=== PATIENT | female | born 1980 | race African-American/Black ===

== ENCOUNTER 2023-05-19 09:22 | Emergency (ER) | payer BC, SELFPAY ==
--- NOTE | ~2023-05-19 | CT_ITS ---
EXAMINATION: CT HEAD WITHOUT CONTRAST CLINICAL INFORMATION: Right facial droop for months COMPARISON: None available. TECHNIQUE: Contiguous axial imaging was performed from the skull base to vertex without intravenous administration of contrast. This CT examination was performed using dose optimization techniques as appropriate, variously including the following: *Automated exposure control *Adjustment of mA and/or kV according to patient size (this includes techniques or standardized protocols for targeted exams where dose is matched to indication/reason for exam; i.e. extremities or head) *Use of iterative reconstruction technique DLP: 601 mGy-cm FINDINGS: There is no evidence of acute intracranial hemorrhage or territorial infarction. No abnormal mass effect or midline shift is appreciated. Franco-white differentiation is well preserved. No extra-axial fluid collections. The ventricular system and cortical sulci are normal in size. The osseous structures and soft tissues are normal. The visualized paranasal sinuses and mastoid air cells are well aerated. CT/CT head/brain wo IV con IMPRESSION: No CT evidence of acute intracranial abnormality. IMPRESSION: No acute intracranial pathology.
[2023-05-19 09:32] VITALS: BP 106/62; PULSE 67; PULSE 71; RESP 18; TEMP 36.8; O2SAT 97; O2SAT 99; BMI 27.6
--- NOTE | 2023-05-19 09:37 | PC.NURSE ---
Per ems/ daughter patient had focal seizures this morning. Per daughter seizure went on her a few hours'. States has not taken dilantin in a long time. Here visiting family but normally lives in [place]. had a seizure about two weeks, with headstrike, per daughter with LOC, reports since falling down the stairs her vision has declined. Bruise noted to left side of face near eye. NSR on monitor
--- NOTE | 2023-05-19 09:41 | PC.NURSE ---
Patient reports 30lb weight loss in last month-when asked why patient states not eating well. Endorses feeling depressed
--- NOTE | 2023-05-19 09:42 | PC.NURSE ---
denies si/hi
[2023-05-19 09:43] VITALS: BP 136/76; PULSE 62; RESP 18; TEMP 36.8; O2SAT 98
--- NOTE | 2023-05-19 09:43 | ECG_ITS ---
Test Reason : SEIZURE Blood Pressure : / mmHG Vent. Rate : 064 BPM Atrial Rate : 064 BPM P-R Int : 136 ms QRS Dur : 080 ms QT Int : 442 ms P-R-T Axes : 041 073 038 degrees QTc Int : 455 ms Normal sinus rhythm Normal ECG No previous ECGs available Referred By: Kelin Lieberman Electronically Signed By:PATTY DUPONT
--- NOTE | 2023-05-19 09:43 | ED.SEIZURE ---
HPI - Seizure General Chief Complaint: Seizure Stated Complaint: SZ,NO MED TODAY PER EMS Time Seen by Provider: 05/19/23 09:31 Source: patient, family (Daughter), EMS and RN notes reviewed Mode of arrival: EMS Limitations: no limitations History of Present Illness HPI Narrative: Patient is a 42-year-old female with history of seizures presenting to the emergency department today after witnessed seizures by daughter. Patient states that she is currently living in [place] and does not have a neurologist at this time, has not taken her Dilantin for several months. Patient reports prior to that she was on 400 mg of Dilantin daily for 20 years. Daughter also reports that patient has had a new right facial droop for the past several months noted on FaceTime calls. Patient states she was never evaluated for the facial droop. Patient also reporting a fall approximately 2 weeks ago with a head strike. Patient states she is not currently on blood thinners. Patient reports increased anxiety and stress recently. Patient also complains of chest tightness. Denies shortness of breath. Denies abdominal pain, nausea, vomiting, diarrhea, or constipation. Patient denies any drug or alcohol use. Patient states that she is currently here visiting her daughter and lives in [place] [employer]. MD complaint: seizure Onset (ago): hour(s) Description of Episode: tonic-clonic movement Witnessed: Yes - by Bystander (Witnessed by daughter) Trauma: No Seizure History: Yes Place: Home Possible Precipitating Event: medication (Has not taken Dilantin in several months) Associated symptoms: chest pain (Tightness) Treatments prior to arrival: none Related Data Previous Rx's Medication Instructions Recorded nitrofurantoin 100 mg PO Q12H 5 days #10 caps 05/19/23 monohydrate/macrocrystals 100 mg capsule (Macrobid) phenytoin sodium extended 200 mg 400 mg (2 x 200 mg) PO DAILY 7 05/19/23 capsule days #14 caps Allergies Allergy/AdvReac Type Severity Reaction Status Date / Time codeine [CODEINE] Allergy Unknown HIVES Unverified 05/12/20 16:51 Review of Systems Review of Systems: As per HPI. Yes all other systems are reviewed and are negative Constitutional: Constitutional: Reports as per HPI PMFSH Social History Social History Smoked in Last 30 Days: Yes Substance Use Type: Marijuana Advance Directives: No Physical Exam Vital Signs: Vital Signs: Last Vital Signs Temp 98.2 F 05/19/23 09:43 Pulse 67 05/19/23 11:55 Resp 18 05/19/23 11:55 BP 102/36 L 05/19/23 11:55 Pulse Ox 97 05/19/23 11:55 O2 Del Method Room Air 05/19/23 11:55 BMI result Body Mass Index 27.6 Vital signs have been reviewed and appear to be correct. Blood pressure normal. Heart rate normal. Respiratory rate normal. Temperature normal. Oxygen saturation normal. Const: General: cooperative, healthy appearing and no acute distress Orientation/consciousness: oriented to person, oriented to place, oriented to time and patient oriented x3 Limitations: no limitations HEENT: Head: Yes normocephalic and Yes atraumatic Ears: external ears normal General nose exam: Normal external nose present Face and sinus: No face symmetric Mouth: oropharynx normal and moist mucous membranes Throat: Yes uvula midline Eyes: Pupils: Equal, round and reactive pupils present EOM: EOMs intact bilaterally Neck: Neck: Yes normal visual inspection and Yes supple Resp: Effort & Inspection: normal respiratory effort and able to speak in complete sentences Auscultation: clear to auscultation bilaterally Cardio: Rate: regular rate Rhythm: regular rhythm Heart sounds: S1 normal heart sound present and S2 normal heart sound present GI: Palpation (GI): Soft to palpation and nontender Auscultation: normoactive bowel sounds : General: Yes no CVA tenderness Back/Spine/Pelvis: Back: no CVA tenderness Skin: General skin exam: elasticity normal and turgor normal Neuro: Other: Right facial droop noted not involving forehead General: oriented to person, oriented to place, oriented to time, patient oriented x3, tone normal, moves all extremities, Normal light touch and pain sensation, no focal motor deficits and CN's II-XI intact bilaterally Cranial nerves: Yes Equal, round and reactive pupils present Cognition (Neuro): normal cognition Motor exam (neuro): Pronator motor function not present, no tremor noted, Motor fasciculations not present and Abnormal motor strength present right lower extremity flexion 4 / 5, extension 4 / 5, ABduction 4 / 5 and ADduction 4 / 5 Sensory Exam: Normal double simultaneous stimulation for sensation Extrem: General: Yes full ROM, Yes no pedal edema and Yes no calf tenderness Psych: Mental Status: mental status grossly normal Affect: normal affect Thought process: Normal thought process present NIH Stroke Scale Internal: Initial- Upon Arrival Time: 09:58 Level of Consciousness: Alert Level of Consciousness Questions: Answers both questions correctly Level of Consciousness Commands: Performs both tasks correctly Best Gaze: Normal Visual: No visual loss Facial Palsy: Partial paralysis (right facial droop) Motor Arm (Right): No drift Motor Arm (Left): No drift Motor Leg (Right): Some effort against gravity Motor Leg (Left): No drift Limb Ataxia: Absent Sensory: Normal Best Language: No aphasia Dysarthia: Normal Extinction and Inattention: No abnormality Score: 4 Medications Administered Discontinued Medications Generic Name Dose Route Start Last Admin Trade Name Freq PRN Reason Stop Dose Admin Phenytoin Sodium 1,000 mg/ 120 mls @ 100 mls/hr 05/19/23 10:03 05/19/23 11:05 Sodium Chloride IV 05/19/23 11:14 Not Given ONCE ONE Phenytoin Sodium 1,000 mg/ 120 mls @ 100 mls/hr 05/19/23 10:30 05/19/23 11:54 Sodium Chloride IV 05/19/23 11:41 Infused ONCE ONE Infusion Medical Decision Making Medical Decision Making [facility] Narrative: Patient is a 42-year-old female with history of seizures presenting to the emergency department today after witnessed seizures by daughter. On exam patient is awake, A+Ox3, VS WNL, afebrile, physical exam findings as above. Given reported symptoms and physical exam findings, initial differential includes subtherapeutic antiepileptic drug levels, CVA/ICH, malignancy mass, electrolyte abnormality, toxic ingestion, infection such as UTI. Do not suspect sepsis at this time. Labs notable for mild leukocytosis, no anemia, no ALMA, normal lactic acid level, negative troponin, negative HCG, negative salicylates and acetaminophen levels. Urine drug screen positive for THC. Phenytoin level slightly above normal but drawn after loading dose administered in the ED. UA notable for 1+ leukocytes, negative nitrates, 11-20 wbc's with trace bacteria, 3-[address] head notable for no acute intracranial pathology. My interpretation is in agreement with the radiologist's interpretation. Case discussed with Dr. Buckley who agrees patient is stable for discharge home. Will provide patient with prescription for one week of phenytoin at 400mg daily dose patient reports. Will also treat empirically for UTI. Patient given strict instructions to follow up with PCP this week to establish care with a neurologist in [place] for both her seizures as well as her facial droop. Advised patient that if she is unable to have phenytoin prescription filled by PCP within one week to seek care at an emergency department in her home state. All results discussed with patient and all questions answered. Return precautions discussed at bedside. Patient and daughter verbalized understanding of and agreement with plan. Differential Diagnosis Differential Diagnoses: The differential diagnosis associated with the presentation includes As per [facility]. Admission/Observation Consideration of admission/observation: Escalation of care including admission/observation considered Lab Data [facility] Lab Attestation statement: I reviewed the patient's lab results. As per MDM. 05/19/23 10:02 05/19/23 10:02 Labs: Lab Results 05/19/23 05/19/23 05/19/23 Range/Units 09:52 10:02 10:03 WBC 12.7 H (4.8-10.8) X10*3/uL RBC 4.19 L (4.20-5.50) X10*6/uL Hgb 12.2 (12.0-16.0) g/dl Hct 35.6 L (37.0-47.0) % MCV 85.0 (80.0-98.0) fL MCH 29.1 (27.0-33.0) pg MCHC 34.3 (31.0-35.0) g/dl RDW 14.2 (11.0-16.0) % Plt Count 427 H (160-400) X10*3/uL MPV 9.7 (9.4-12.3) fL Immature Gran % (Auto) 0.3 (0.0-0.4) % Neut % (Auto) 63.5 (45-73) % Lymph % (Auto) 30.5 (20-40) % [place] % (Auto) 3.9 (2-11) % Eos % (Auto) 1.5 (0-4) % Baso % (Auto) 0.3 (0-2) % Lymph # (Auto) 3.9 (1.2-4.9) X10*3/uL [place] # (Auto) 0.5 (0.1-1.2) X10*3/uL Eos # (Auto) 0.2 (0.0-0.4) X10*3/uL Baso # (Auto) 0.0 (0.0-0.2) X10*3/uL Abs Immat Gran (auto) 0.04 H (0.00-0.03) X10*3/uL Absolute Neuts (auto) 8.1 (2.0-8.3) x10*3/uL Absolute Nucleated RBC 0.000 (0.0-0.012) X10*3/uL Nucleated RBC % (auto) 0.0 (0.0-0.2) /100WBC PT 12.0 (11.1-13.3) SEC INR 1.0 (0.9-1.1) Sodium 140 (135-145) mmol/L Potassium 3.5 (3.3-5.1) mmol/L Chloride 111 H (96-108) mmol/L Carbon Dioxide 18 L (22-29) mmol/L Anion Gap 15 (12-20) BUN 7 L (9-16) mg/dL Creatinine 0.71 (0.5-1.4) mg/dL Estim Creat Clear Calc 114.6 Estimated GFR > 60 Random Glucose 97 (60-115) mg/dL Lactic Acid 1.5 (0.5-2.0) mmol/L Calcium 9.5 (8.4-10.2) mg/dL Total Bilirubin 0.6 (0.0-1.0) mg/dL AST 12 (5-31) U/L ALT 7 (0-31) U/L Alkaline Phosphatase 69 (39-117) U/L Troponin I High Sens < 2.7 (<3.5-17.0) ng/L Total Protein 6.9 (6.5-8.0) g/dL Albumin 4.3 (3.5-5.0) g/dL Beta HCG, Quant < 2 mIU/mL Urine Color Urine Appearance Urine pH (5.0-9.0) Ur Specific [place] (1.005-1.025) Urine Protein (Neg-Trace) mg/dL Urine Glucose (UA) (Negative) mg/dL Urine Ketones (Negative) mg/dL Urine Blood (Negative) Urine Nitrite (Negative) Ur Leukocyte Esterase (Negative) Urine RBC (0-2) /HPF Urine WBC (0-5) /HPF Ur Squamous Epith Cells (0-2) /HPF Urine Bacteria (None Seen) Hyaline Casts (0-2) /LPF Salicylates < 5.0 L (15-30) mg/dL Urine Opiates Screen (Not Detect) Urine Fentanyl Screen (Not Detect) Acetaminophen < 17 (<30) mcg/mL Ur Barbiturates Screen (Not Detect) Phenytoin (10.0-20.0) ug/mL Ur Phencyclidine Scrn (Not Detect) Ur Amphetamines Screen (Not Detect) U Benzodiazepines Scrn (Not Detect) Urine Cocaine Screen (Not Detect) U Marijuana (THC) Screen (Not Detect) Ethyl Alcohol < 10 mg/dL COVID-19 ([facility]) Cancelled COVID-19 Clin Com Cancelled Influenza Type A (RAIZA) Cancelled Influenza Type A (PCR) (Negative) Influenza Type B (RAIZA) Cancelled Influenza Type B (PCR) (Negative) Influenza A & B Note Cancelled RSV RNA Qual (PCR) (Negative) SARS-CoV-2 RNA (RT-PCR) (Negative) 05/19/23 05/19/23 05/19/23 Range/Units 10:12 12:00 Unknown WBC (4.8-10.8) X10*3/uL RBC (4.20-5.50) X10*6/uL Hgb (12.0-16.0) g/dl Hct (37.0-47.0) % MCV (80.0-98.0) fL MCH (27.0-33.0) pg MCHC (31.0-35.0) g/dl RDW (11.0-16.0) % Plt Count (160-400) X10*3/uL MPV (9.4-12.3) fL Immature Gran % (Auto) (0.0-0.4) % Neut % (Auto) (45-73) % Lymph % (Auto) (20-40) % [place] % (Auto) (2-11) % Eos % (Auto) (0-4) % Baso % (Auto) (0-2) % Lymph # (Auto) (1.2-4.9) X10*3/uL [place] # (Auto) (0.1-1.2) X10*3/uL Eos # (Auto) (0.0-0.4) X10*3/uL Baso # (Auto) (0.0-0.2) X10*3/uL Abs Immat Gran (auto) (0.00-0.03) X10*3/uL Absolute Neuts (auto) (2.0-8.3) x10*3/uL Absolute Nucleated RBC (0.0-0.012) X10*3/uL Nucleated RBC % (auto) (0.0-0.2) /100WBC PT (11.1-13.3) SEC INR (0.9-1.1) Sodium (135-145) mmol/L Potassium (3.3-5.1) mmol/L Chloride (96-108) mmol/L Carbon Dioxide (22-29) mmol/L Anion Gap (12-20) BUN (9-16) mg/dL Creatinine (0.5-1.4) mg/dL Estim Creat Clear Calc Estimated GFR Random Glucose (60-115) mg/dL Lactic Acid (0.5-2.0) mmol/L Calcium (8.4-10.2) mg/dL Total Bilirubin (0.0-1.0) mg/dL AST (5-31) U/L ALT (0-31) U/L Alkaline Phosphatase (39-117) U/L Troponin I High Sens (<3.5-17.0) ng/L Total Protein (6.5-8.0) g/dL Albumin (3.5-5.0) g/dL Beta HCG, Quant mIU/mL Urine Color Yellow Urine Appearance Clear Urine pH 8.0 (5.0-9.0) Ur Specific [place] 1.015 (1.005-1.025) Urine Protein Negative (Neg-Trace) mg/dL Urine Glucose (UA) Negative (Negative) mg/dL Urine Ketones 15 (Negative) mg/dL Urine Blood Negative (Negative) Urine Nitrite Negative (Negative) Ur Leukocyte Esterase Small (1+) H (Negative) Urine RBC 0-2 (0-2) /HPF Urine WBC 11-20 H (0-5) /HPF Ur Squamous Epith Cells 3-5 (0-2) /HPF Urine Bacteria Trace (None Seen) Hyaline Casts 0-2 (0-2) /LPF Salicylates (15-30) mg/dL Urine Opiates Screen Not Detected (Not Detect) Urine Fentanyl Screen Not Detected (Not Detect) Acetaminophen (<30) mcg/mL Ur Barbiturates Screen Not Detected (Not Detect) Phenytoin 22.2 H (10.0-20.0) ug/mL Ur Phencyclidine Scrn Not Detected (Not Detect) Ur Amphetamines Screen Not Detected (Not Detect) U Benzodiazepines Scrn Not Detected (Not Detect) Urine Cocaine Screen Not Detected (Not Detect) U Marijuana (THC) Screen POSITIVE H (Not Detect) Ethyl Alcohol mg/dL COVID-19 ([facility]) COVID-19 Clin Com Influenza Type A ([facility]IZA) Influenza Type A (PCR) NEGATIVE (Negative) Influenza Type B (RAIZA) Influenza Type B (PCR) NEGATIVE (Negative) Influenza A & B Note RSV RNA Qual (PCR) NEGATIVE (Negative) SARS-CoV-2 RNA (RT-PCR) NEGATIVE (Negative) Independent Interpretation I performed an independent interpretation of an: CT Scan Interpretation: No acute abnormality on CT head EKG shows normal sinus rhythm, rate of 64 beats per minute, normal MA interval, no evidence of STEMI Radiology Impression Discussion of test interpretation with radiology: I have reviewed the radiologist's reading. Radiologist Impression: IMPRESSION: No acute intracranial pathology. Independent Historian Clinical information obtained from an independent historian. History obtained from or confirmed by: Other (daughter) External Record Review External record reviewed: Inpatient record, Office record and Outpatient record Prescription Management I considered prescription management with: Antibiotic and Other Chronic Conditions Patient?s care impacted by: Other (seizures) Discharge Plan Discharge Clinical Impression: Generalized seizure Patient Disposition: Home, Self-Care Instructions: Recurrent Seizures in Adults (ED) Additional Instructions: You were evaluated in the emergency department today after a seizure. You are being treated with antibiotics for UTI, please complete the full course as prescribed. You were given a loading dose of phenytoin in the emergency department today. You are being prescribed a 7 day supply of your phenytoin for your seizures. Please follow-up with your primary care provider in [place] to continue this prescription in to help you establish care with a new neurologist. Return to the emergency department for additional features, severe headache, high fever, persistent vomiting, changes in vision, severe muscle pain, dark urine, or any other new or concerning symptoms. Prescriptions: New phenytoin sodium extended 200 mg capsule 400 mg PO DAILY 7 Days Qty: 14 0RF nitrofurantoin monohyd/m-cryst [Macrobid] 100 mg capsule 100 mg PO Q12H 5 Days Qty: 10 0RF Rx Instructions: must administer with a meal/food
[2023-05-19 10:08] LABS: MANUAL DIFF FLAG NO
[2023-05-19 10:10] LABS: Basophils Percent Auto 0.3 % (0-2); Eosinophils Absolute Auto 0.2 X10*3/uL (0.0-0.4); Eosinophils Percent Auto 1.5 % (0-4); Hematocrit 35.6 % (37.0-47.0); Hemoglobin 12.2 g/dl (12.0-16.0); Imm Gran Abs Auto 0.04 X10*3/uL (0.00-0.03); Imm Gran Pct Auto 0.3 % (0.0-0.4); Lymphocytes Absolute Auto 3.9 X10*3/uL (1.2-4.9); Lymphocytes Percent Auto 30.5 % (20-40); Mean Corpuscular HGB Conc 34.3 g/dl (31.0-35.0); Mean Corpuscular Hemoglobin 29.1 pg (27.0-33.0); Mean Platelet Volume 9.7 fL (9.4-12.3); Monocytes Absolute Auto 0.5 X10*3/uL (0.1-1.2); Monocytes Percent Auto 3.9 % (2-11); Neutrophils Absolute Auto 8.1 x10*3/uL (2.0-8.3); Neutrophils Percent Auto 63.5 % (45-73); Platelet Count 427 X10*3/uL (160-400); Red Blood Count 4.19 X10*6/uL (4.20-5.50); Red Cell Distribution Width 14.2 % (11.0-16.0); White Blood Count 12.7 X10*3/uL (4.8-10.8)
[2023-05-19 10:19] LABS: Appearance Urine Clear; Color Urine Yellow; Glucose Urine UA Negative (Negative); Leukocyte Esterase Urine Small (1+) (Negative); Nitrite Urine Negative (Negative); Specific Gravity - Urine 1.015 (1.005-1.025); UMIC TRIGGER UACC YES; Urine Blood Negative (Negative); Urine Ketones 15 mg/dL (Negative); Urine Protein Negative (Neg-Trace)
[2023-05-19 10:24] LABS: Bacteria Urine Trace (None Seen); Hyaline Casts Urine 0-2 /LPF (0-2); RBC Urine 0-2 /HPF (0-2); UACC Culture Trigger YES
[2023-05-19 10:25] LABS: Lactic Acid 1.5 mmol/L (0.5-2.0)
[2023-05-19 10:26] LABS: Amphetamine Screen Urine Not Detected (Not Detect); Barbiturates, Urine Not Detected (Not Detect); Benzodiazepines Screen Urine Not Detected (Not Detect); Cannabinoid Screen Urine POSITIVE (Not Detect); Cocaine Screen Urine Not Detected (Not Detect); Fentanyl, urine Not Detected (Not Detect); Opiate Screen Urine Not Detected (Not Detect); Phencyclidine Screen Urine Not Detected (Not Detect)
[2023-05-19 10:31] LABS: Ethanol < 10 mg/dL
[2023-05-19 10:45] LABS: Alanine Aminotransferase 7 U/L (0-31); Albumin Level 4.3 g/dL (3.5-5.0); Alkaline Phosphatase 69 U/L (39-117); Anion Gap 15 (12-20); Aspartate Amino Transferase 12 U/L (5-31); Bilirubin Total 0.6 mg/dL (0.0-1.0); Blood Urea Nitrogen 7 mg/dL (9-16); Calcium 9.5 mg/dL (8.4-10.2); Carbon Dioxide 18 mmol/L (22-29); Chloride 111 mmol/L (96-108); Creatinine Clr Calc Pharmacy 114.6; Estimated Glomerular Filt Rate > 60; Glucose Random 97 mg/dL (60-115); HCG Quantitative < 2 mIU/mL; Potassium 3.5 mmol/L (3.3-5.1); Sodium 140 mmol/L (135-145); Total Protein 6.9 g/dL (6.5-8.0); Troponin-I High Sensitivity < 2.7 ng/L (<3.5-17.0)
[2023-05-19 10:45] LABS: Acetaminophen LAB < 17 mcg/mL (<30); Salicylate < 5.0 mg/dL (15-30)
[2023-05-19 11:01] LABS: Influenza A PCR NEGATIVE (Negative); Influenza B PCR NEGATIVE (Negative); Resp Syncy Virus RNA Qual PCR NEGATIVE (Negative); SARS COV2 PCR INHOUSE NEGATIVE (Negative)
[2023-05-19 11:55] VITALS: BP 102/36; PULSE 67; RESP 18; O2SAT 97
--- NOTE | 2023-05-19 12:09 | PC.NURSE ---
Patient changed into hospital attire, belongings locked into pod locker # 11, 1:1 for safety
--- NOTE | 2023-05-19 12:10 | PC.NURSE ---
Patient reports feeling tired after IV dilantin, but states it is the same feeling she always gets after taking po or IV diluadid. VSS, nsr on monitor
[2023-05-19 12:17] LABS: Phenytoin Dilantin 22.2 ug/mL (10.0-20.0)
--- NOTE | 2023-05-19 13:08 | PC.NURSE ---
Discharge instruction reviewed with patient and daughter. Daughter requesting security control center operator to her aunts car upon discharge as she is worried that her moms boyfriend is in the parking lot. Security notified
--- NOTE | 2023-05-19 13:29 | PC.NURSE ---
Escorted by security to sisters car
== END 2023-05-19 13:30 | disposition home or self-care (01) ==
PROVIDERS: Registered Nurse Emergency; Emergency Provider Emergency Medicine
DX: R56.9 Unspecified convulsions (principal); R29.704 NIHSS score 4; R07.89 Other chest pain; R29.810 Facial weakness; Z20.822 Contact with and (suspected) exposure to COVID-19; Z20.828 Contact with and (suspected) exposure to other viral communicable diseases; Z91.148 Patient's other noncompliance with medication regimen for other reason; Z79.899 Other long term (current) drug therapy
CPT/HCPCS: 0241U; 36415; 70450; 80053; 80143; 80179; 80185; 80307; 81001; 83605; 84484; 84702; 85025; 85610; 87086; 87502; 87635; 93005; 96365; 96366; 99284